=== PATIENT | male | born 1980 | race Caucasian/White ===

== ENCOUNTER → 2016-03-23 | Emergency (ER) | payer OTHER ==
[2016-03-23 18:15] VITALS: BP 137/98
--- NOTE | 2016-03-23 20:06 | RAD ---
INDICATION: Chest injury COMPARISON: None TECHNIQUE: PA and lateral dual-energy views were obtained. FINDINGS: Bones/Soft Tissues: There are no acute bony findings. Cardiomediastinal: The cardiomediastinal silhouette is normal. Lungs: There are no infiltrates. Pleura: There are no pleural effusions. Other: None IMPRESSION: NEGATIVE EXAMINATION.
--- NOTE | 2016-03-23 20:07 | RAD ---
INDICATION: Chest pain. Injury. COMPARISON: Chest x-ray same date TECHNIQUE: Oblique lateral views were obtained. FINDINGS: There is no plain radiographic evidence of sternal fracture.. IMPRESSION: NEGATIVE EXAMINATION.
--- NOTE | 2016-03-23 20:08 | RAD ---
INDICATION: Back pain COMPARISON: None TECHNIQUE: 2 views were obtained. FINDINGS: Bones: There are no acute bony findings. There are no significant osteoarthritic findings. Alignment: Normal Disc spaces: The disc spaces are well-maintained Soft tissues: There are no soft tissue abnormalities. IMPRESSION: NEGATIVE 2 VIEW EXAMINATION.
--- NOTE | 2016-03-23 20:09 | RAD ---
INDICATION: Neck injury COMPARISON: None TECHNIQUE: Routine five-view imaging was performed FINDINGS: Bones: There are no acute bony findings. There are no significant osteoarthritic findings. Craniocervical junction: The odontoid and atlantodental interval are normal. Alignment: Normal Disc spaces: The disc spaces are well-maintained Soft tissues: The prevertebral soft tissues are normal. IMPRESSION: NEGATIVE EXAMINATION.
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
== END | disposition home or self-care (01) ==
LOC: ED 17:57
DX: S16.1XXA Strain of muscle, fascia and tendon at neck level, initial encounter (principal); T14.8 Other injury of unspecified body region; V89.2XXA Person injured in unspecified motor-vehicle accident, traffic, initial encounter; Y92.9 Unspecified place or not applicable
CPT/HCPCS: 71020; 71120; 72050; 72100; 99282